=== PATIENT | male | born 1965 | race Caucasian/White ===

== ENCOUNTER → 2023-01-09 17:31 | Outpatient (CLI) | payer OTHER, SELFPAY ==
--- NOTE | ~2023-01-09 | MR_ITS ---
EXAMINATION: MR knee LT wo con DATE: 01/09/2023 18:05 INDICATION: Chronic left knee pain TECHNIQUE: Magnetic resonance imaging (MRI) of the left knee was performed without intravenous contra st. Sequences included coronal PD-weighted FSE, coronal PD-weighted FS FSE, sagittal T2-weighted FSE , sagittal PD-weighted FS FSE and axial PD weighted fat saturated FSE. COMPARISON: None. FINDINGS: Medial compartment: Longitudinal horizontal tear extending to the inferior articular surface at the posterior body and po sterior horn of the medial meniscus. Full/near full-thickness chondral ulceration with defect at the anterior weightbearing medial femoral condyle measuring 1.4 similar AP and 8 mm medial to lateral. Ad ditional slightly less severe deep chondral ulceration at the central weightbearing medial femoral co ndyle. Mild partial-thickness cartilage loss with chondral surface regularity at the posterior weight bearing medial femoral condyle. There is mild chondral surface regularity and underlying subarticular edema along the posterior medial rim of the medial tibial plateau. Lateral compartment: Lateral meniscus is normal. Partial-thickness chondral fissuring at the central weightbearing lateral femoral condyle and posteriorly rim of the lateral tibial plateau. Patellofemoral compartment: Deep chondral ulceration with underlying cortical irregularity and subarticular edema-like signal michael nge extending across the central aspect of the lateral trochlea to the trochlear groove. Deep chondra l fissure at the cephalad aspect of the trochlear groove and medial trochlea. Chondral swelling with suggestion of a delaminating tear near the chondral labral junction at the central aspect of the medi al trochlea. Partial thickness cartilage loss with deep chondral fissuring at the lateral patellar fa cet. Tiny focus of edema-like signal change at the superolateral aspect of the lateral patellar facet . Ligaments and tendons: Anterior and posterior cruciate ligaments are normal. The medial collateral ligament and fibular savannah ateral ligament complex are normal. The extensor mechanism is normal. The visualized medial and later al hamstring tendons as well as the iliotibial band are normal. Fluid: Small left knee joint effusion. Small loose osteochondral body at the recess posterior to the distal posterior cruciate ligament. Osseous/other: Bone alignment is normal. No fracture or pathologic marrow replacing process. IMPRESSION: 1. Longitudinal horizontal tear of the body and posterior horn of the medial meniscus. 2. Mild tricompartmental osteoarthritis with regions of high-grade chondromalacia in the medial and p atellofemoral compartments and moderate grade chondral malacia in the lateral compartment. Reviewed, dictated and finalized at location A. [employer] IMPRESSION: 1. Longitudinal horizontal tear of the body and posterior horn of the medial me niscus. 2. Mild tricompartmental osteoarthritis with regions of high-grade chondromalac ia in the medial and patellofemoral compartments and moderate grade chondral ma lacia in the lateral compartment.
== END ==
PROVIDERS: PCP Orthopaedic Surgery; Visit Provider Orthopaedic Surgery
DX: M17.12 Unilateral primary osteoarthritis, left knee (principal); S83.242A Other tear of medial meniscus, current injury, left knee, initial encounter; X58.XXXA Exposure to other specified factors, initial encounter
CPT/HCPCS: 73721